=== PATIENT | male | born 1965 | race Caucasian/White ===

== ENCOUNTER 2019-10-28 15:02 | Emergency (ER) | payer BC, OTHER ==
[~2019-10-28] VITALS: Ht 208.3 cm; Wt 110.0 kg
--- NOTE | 2019-10-28 15:09 | NUR ---
PATIENT BROUGHT IN BY [facility]KE FROM [facility] FOR CHIEF COMPLAINT OF ETOH.
--- NOTE | 2019-10-28 16:01 | NUR ---
PT RESTING IN BED. CALL LIGHT IN REACH
[2019-10-28 16:09] VITALS: BP 142/92
--- NOTE | 2019-10-28 16:54 | NUR ---
PT RESTING, WILL ATTEMPT AMBULATION.
--- NOTE | 2019-10-28 17:20 | NUR ---
DISCHARGE INSTRUCTIONS REVIEWED.
== END 2019-10-28 17:23 | disposition home or self-care (01) ==
LOC: ED 17:15
DX: F10.129 Alcohol abuse with intoxication, unspecified (principal); Y90.0 Blood alcohol level of less than 20 mg/100 ml
CPT/HCPCS: 99283